=== PATIENT | female | born 1990 | race Caucasian/White ===

== ENCOUNTER 2023-03-07 19:14 | Outpatient (REF) | payer SELFPAY ==
[2023-03-11 14:11] LABS: Age Gdln ACOG Testing Note (.); HPV Aptima Negative (Negative); IGP, Aptima HPV, rfx 16/18,45 Note (.)
== END 2023-03-07 19:15 | disposition home or self-care (01) ==
LOC: LAB 19:14
PROVIDERS: Visit Provider Obstetrics & Gynecology
DX: Z01.419 Encounter for gynecological examination (general) (routine) without abnormal findings (principal)
CPT/HCPCS: 87624; G0145

== ENCOUNTER 2024-07-29 21:35 | Outpatient (REF) | payer SELFPAY ==
[2024-08-01 10:08] LABS: Age Gdln ACOG Testing Note (.); HPV Aptima Negative (Negative); IGP, Aptima HPV, rfx 16/18,45 Note (.)
== END 2024-07-29 21:36 | disposition home or self-care (01) ==
LOC: LAB 21:35
PROVIDERS: Visit Provider Obstetrics & Gynecology
DX: Z01.419 Encounter for gynecological examination (general) (routine) without abnormal findings (principal)
CPT/HCPCS: 87624; 88175